=== PATIENT | male | born 1950 | race Caucasian/White ===

== ENCOUNTER 2017-10-13 09:45 | Day surgery (SDC) | payer MEDICARE, OTHER | END 2017-10-13 09:46 | disposition home or self-care (01) | LOC: D.OPS 09:45 | DX: R97.20 Elevated prostate specific antigen [PSA] (principal); R36.1 Hematospermia; R31.21 Asymptomatic microscopic hematuria; I10 Essential (primary) hypertension; E11.9 Type 2 diabetes mellitus without complications; G47.30 Sleep apnea, unspecified; Z01.812 Encounter for preprocedural laboratory examination ==

== ENCOUNTER → 2017-10-28 09:40 | Outpatient (CLI) | payer MEDICARE, OTHER ==
[2017-10-13 06:47] VITALS: BMI 32.1
[~2017-10-28 09:40] MED LIST: ASPIRIN81 MG PO; COLACE100 MG PO; COZAAR50 MG PO; FLOMAX0.4 MG PO; HCTZ25 MG PO; HUMALOG 30100 UNITS/ SC; LANTUS INSULIN10 ML SC; METFORMIN HCL500 M1 PO; MYSOLINE 50 MG50 MG PO; NORCO 7.5/325 T1 TA1 PO; TRICOR145 MG PO; ZESTRIL40 MG PO; ZOCOR20 MG PO; ZOFRAN4 MG PO
== END | disposition home or self-care (01) ==
LOC: D.NM 09:40
DX: C61 Malignant neoplasm of prostate (principal)

== ENCOUNTER 2018-01-05 05:50 | Inpatient (IN) | payer MEDICARE, OTHER ==
[2018-01-04 10:45] LABS: BASOPHILS 0.1 % (0-2); EOSINOPHILS 1.6 % (0-7); HEMATOCRIT 41.6 % (42.0-54.0); HEMOGLOBIN 14.6 g/dL (13.5-17.5); IMMATURE GRANULOCYTES 0.1 % (0-5); LYMPHOCYTES 36.1 % (15-50); MCH 30.6 pg (26.0-34.0); MCHC 35.1 g/dL (31.0-37.0); MCV 87.2 fL (80.0-100.0); MEAN PLATELET VOLUME 9.9 fL (7.4-10.4); MONOCYTES 8.9 % (2-11); NEUTROPHILS 53.2 % (40-80); PLATELET COUNT 170 10x3/uL (130-400); RBC 4.77 10x6/uL (4.20-6.10); WBC 6.8 10x3/uL (4.8-10.8)
[2018-01-04 10:57] LABS: INR 1.02 (0.85-1.17)
[2018-01-04 10:58] LABS: APTT 30.8 SECONDS (22.8-39.4)
[2018-01-04 11:05] LABS: ANION GAP 10.3 mmol/L (8-16); CALCIUM 9.4 mg/dL (8.5-10.1); CARBON DIOXIDE 31.5 mmol/L (21.0-32.0); CREATININE - SERUM 1.1 mg/dL (0.6-1.3); POTASSIUM - SERUM 3.8 mmol/L (3.5-5.1)
[~2018-01-05] VITALS: Ht 180.3 cm; Wt 104.3 kg
[2018-01-05] VITALS (13 sets, daily range): BP systolic 92–147; BP diastolic 48–87; BMI 32.1
--- NOTE | ~2018-01-05 | OP ---
PATIENT NAME: PHILLY BERGER MEDICAL RECORD: [id number] :48 LOCATION:D.MS [id number] ADMISSION DATE:01/05/18 SURGEON: DANY BENSON MD DATE OF OPERATION: 01/05/2018 This is a cosurgeon note. This is for the prostatectomy with lymph node biopsies/sampling. Due to complexity of the procedure, it was necessary to have 2 attending surgeons perform the procedure. This is a cosurgeon case. Dr. Vasquez and myself performed this procedure. I was present during the initial opening of the incision as well as dissection down through the subcutaneous adipose tissue and Kayleigh's fascia. I incised the anterior fascia. Dr. Vasquez worked on the right side, I worked on the left side to create an extraperitoneal plane. Once we had done this, Dr. Vasquez worked on the right side harvesting lymph nodes. I worked on the left side, dissected down to the obturator nerve, which was identified and retracted for protection. It was undamaged during the procedure. A wilber packet was retrieved and lymphatics to the wilber packet were clipped with metallic clips. The specimen was sent to pathology. The vas deferens on the left was ligated and divided doubly and a portion was excised and sent to pathology. This was performed on the right side as well. There were dense adhesions from the patient's prior urologic operation. Dr. Vasquez had performed a cystoscopy prior to the open procedure and I was not a cosurgeon on that cystoscopy; however, I was present to witness it. We dissected down to the left side to the endopelvic fascia, which was incised and I dissected bluntly down the left side of the prostate to the urethra. Dr. Vasquez did the same procedure on the right. We then released some adhesions from the prostate gland to the overlying pubic symphysis. Some suture ligatures were placed. We dissected down to the junction of the urethra in the prostate gland which Dr. Vasquez incised. We then transected the urethra. I assisted with placement of a Esparza catheter through the prostate gland and then ablation for retraction. I dissected some posteriorly on the prostate gland and Dr. Vasquez did as well. Between clips on the left side of the prostate gland, ligamentous tissue was incised. The prostate gland was delivered. Dr. Vasquez divided the bladder neck anteriorly while I retracted the prostate gland. I continued this division of the prostate gland. We then everted the mucosa of the prostate gland with small chromics. I did one side and Dr. Vasquez did the other. We then decreased the bladder opening with a running suture. We then advanced a urinary catheter up through the urethra and into the bladder and then inflated it. We released the retractor on the bladder. Dr. Vasquez then used the Capio device to place several sutures through the urethra and did this as well. These were placed at roughly 12 o'clock, 2 o'clock, 10 o'clock, 5 o'clock, and 7 o'clock. We then placed sutures from inside the bladder to outside the bladder corresponding to these same numbers on the face of a clock. We then pushed the bladder down to the urethra and tied the sutures. A hemostatic agent was placed on either side of the bladder neck. The drain was placed. Dr. Vasquez and I then performed the fascial closure. Some subcutaneous 3-0 Vicryls were placed and the adipose tissue and then metallic clips. The drain was sutured to skin with a 2-0 nylon. TRANSINT:[id number] Voice Confirmation ID: [id number] DOCUMENT ID: [id number] OPERATIVE REPORT [id number] PHILLY BERGER, DANY BATES at 1157 CC: [id number] DICTATION DATE: 01/07/18 1159 MEDIA SALES EXECUTIVE: 01/07/18 1642 DIS IN 01/07/18 [facility] [address] [id number]
--- NOTE | ~2018-01-05 | OP ---
PATIENT NAME: PHILLY BERGER MEDICAL RECORD: [id number] :48 LOCATION:D.MS [facility] ADMISSION DATE:01/05/18 SURGEON: DANY BARNEY MD DATE OF OPERATION: 01/05/2018 CO-SURGEON: Dany Barney M.D.; and Dany Watkins MD ANESTHESIA: General anesthesia plus TAP, Luke Sewell MD DIAGNOSIS: Prostate cancer on the right lobe, [place] 3+3 equals 6. PSA 3.8. Stage T2b, N0, M0. PROCEDURES: Cystoscopy and radical retropubic prostatectomy with pelvic lymph node biopsy. FINDINGS: On cystoscopy, obstructive prostate. He had the left ureter reimplanted and it enters into the left lateral wall of the bladder. The right ureteral orifice could not be found. No bladder tumors were found. On lymph node frozen sections, no cancer found. SPECIMENS: 1. Left vas. 2. Right vas. 3. Right pelvic lymph nodes. 4. Left pelvic lymph nodes. 5. Prostate with attached seminal vesicles. ESTIMATED BLOOD LOSS: 1500 mL. No blood transfused intraoperatively. COMPLICATIONS: None. CLINICAL HISTORY: This is a 67-year-old male who had obstructive voiding symptoms from BPH. He was found to have an elevated PSA of 3.8. He has a positive family history of prostate cancer with one uncle dying of prostate cancer. A brother had prostate cancer and this was treated with radical prostatectomy. Because his PSA was quite borderline and given his positive family history, he had a prostate biopsy performed. Prostate size was estimated at 63 grams and the cores on the right side of the prostate were all positive for cancer, [place] 3+3 equals 6. He then had a metastatic workup including a chest x-ray, which was normal. Whole body bone scan was normal. CT scan of the abdomen and pelvis showed an enlarged prostate with a 1.4-cm sacral bone island and there was no hydronephrosis. There was bilateral renal atrophy on the CT. He had bilateral ureteral reimplantation when he was age 23 as he had kept getting recurrent urinary tract infections from reflux. The treatment options were given to him. Given his family history of prostate cancer with one , he was not amenable to watchful waiting. He did not want to have radiation. Therefore, his choice was for radical prostatectomy. He had the option to go to [place] to have a robotic prostatectomy performed, but he did not wish to do this. He wished to stay here in [place] and have an open retropubic prostatectomy performed. He did have an enema the evening before in order to clear the rectum. We crossmatched him for 2 units of packed red blood cells. He was given ampicillin and sulbactam IV cast iron drain pipe layer to the OR, 3 grams. HE IS ALLERGIC TO NEOSPORIN. OPERATIVE REPORT [id number] PHILLY BERGER PROCEDURE: The patient was given induction of general anesthetic while in supine position on the stretcher. I wish to perform a flexible cystoscopy initially to determine where the ureteral orifices are in his bladder, since they have been reimplanted. We put his legs into frog-leg position and then he was prepped and draped. Flexible cystoscope was introduced. Penile urethra showed no strictures. Prostatic urethra showed trilobar hyperplasia with obstruction. Going into the bladder, I could not see his [place] ureteral orifices. No bladder tumors were seen. With great difficulty, I could find the left ureteral orifice in the mid lateral wall of the left side of the bladder. Looking on the corresponding location on the right side, it was very difficult to find the orifice, but I am going to presume that it is in the comparable location on the right side on the lateral wall. The orifices are located at quite a distance away from the bladder neck and therefore we are relatively safe in performing our prostatectomy surgery. The patient was then transferred to the operating table. He was placed in the supine position. We placed his iliac crest at the level of the kidney rest, which was brought up a little bit. The table was also bent so that his spine was in extension. This opened up the abdomen as much as possible. He has a vertical midline incision on his abdomen from his previous ureteral reimplantation surgery. We reentered this from just inferior to the umbilicus to the level of the symphysis pubis. Since there was some irregular scarring along this incision, we excised the previous scar. We went down with the Bovie down through the rectus fascia. Here, we encountered quite a lot of adhesions of the transversalis fascia to the undersurface of the rectus fascia. With sharp and blunt dissection, we managed to finally enter the space of Retzius. We stayed out of the peritoneal cavity. As we dissected laterally, we encountered the vas deferens on each side. The vas deferens was then tied proximally and distally with about a 2 cm interval in between. The intervening segment was excised and sent to pathology for identification. We were then able to put our Bookwalter retractor in. Moistened lap sponges were used to pad the retractor blades. We also used a bladder retraction blade to pull the bladder up. We had inserted a 16-Bhutanese Esparza catheter with 20 cc of water in the balloon. This was used to go into the notch of the bladder retraction blade and hold the bladder cranially. Our first order of business was to check for the pelvic lymph nodes. The landmark for the lymph node package is bordered anteriorly by the external iliac vein. Distally, it is the branch of the circumflex iliac vein coming off the external iliac vein. Posteriorly, it is the obturator nerve. Cranially, it is the branching of the common iliac vein into the external iliac and internal iliac veins. Within this area, we used the Yankauer suction as well as clips to remove the wilber package. The obturator nerve was identified clearly on both sides and left intact on both sides. We sent the lymph node packages to pathology for frozen section. Dr. Saeed reported that both lymph node packages were negative for prostate cancer. We then made incisions in the endopelvic fascia using the Bovie. This was on either side of the lateral wall of the prostate. We were then able to bluntly dissect the levator muscles away from the lateral surface of the prostate and therefore palpate the apex of the prostate and the urethra contained there. This was done on either side. A backbleeding suture of 2-0 chromic catgut was placed in a [id number]-gkzqt fashion along the dorsal surface of the prostate to prevent bleeding from the bladder neck region. We then placed a [place] clamp into the plane between the anterior surface of the urethra and just posterior to the dorsal venous complex. Here, we placed three sets of #0 silk ties to ligate the dorsal venous complex. OPERATIVE REPORT [id number] PHILLY BERGER We did not take the puboprostatic ligaments down, but they were left intact. Once the dorsal veins had been ligated in triplicate, we then used the #15 blade to incise the dorsal venous complex. We had some bleeding from the dorsal vein and we placed a horizontal mattress suture using #0 silk in order to control this. We now dissected the plane between the posterior surface of the urethra and the anterior surface of the rectum using the [place] clamp. This was done at the level of the apex of the prostate. We were then able to pass the [place] clamp through underneath the urethra to the other side. Here, we took a Romelia drain and pulled it through. Using hemostats on either side of the [place] drain to suspend the urethra anteriorly, a #15 blade was used to circumscribe the urethra at the level of the apex of the prostate. We were then able to transect the Esparza catheter. We placed another Esparza catheter through the prostate apex, into the bladder, and used this for traction of the apex of the prostate. The rectourethralis muscle was sharply divided using Metzenbaum scissors. We were then able to bluntly dissect the anterior surface of the rectum away from the posterior surface of the prostate. The lateral pedicles at the endopelvic fascia on each side and incised using a #15 blade. This was to try to spare his nerves. The patient does have erectile dysfunction already, but we are still going to try to perform a cavernosal nerve sparing procedure. The lateral prostatic pedicles were taken down using a right-angle clamp for dissection and using clips. We would clip on the patient's side of the pedicle and just divide above it with Metzenbaum scissors on the prostatic side. In this way, we got to the level of the bladder neck on either side of the prostate. We had to free up the seminal vehicles and vas deferens. The Denonvilliers fascia was incised transversely. The fascia was then dissected away from the vas deferens and the seminal vesicles. We dissected the seminal vesicles down to the apex. Here, a clip was placed on the pedicle right at the apex of the seminal vesicle on each side and the seminal vesicle was then divided using Metzenbaum scissors. We dissected around the vas deferens and a clip was placed and the Metzenbaum scissors was used to divide the vas deferens on the prostatic side of the clip. Finally, the only thing holding the prostate was the bladder neck. We used initially the Bovie to start incision of the bladder neck. Finally, we used the Metzenbaum scissors to completely go around the bladder neck and free the prostate from the bladder. The prostate was then entirely free and it was sent to pathology in formalin. On examining the bladder, we still had good urine output coming out of the bladder. Therefore, the ureters were not affected at all. In fact, on examining the exterior surface of the bladder, we could see on the left lateral side the ureter as it entered into the bladder. We then everted the mucosa of the bladder. The 4-0 simple interrupted chromic catgut sutures were used to tack the bladder mucosa to over the cut edge of the bladder wall. This, we did all the way around. We then made a tennis racquet narrowing of the bladder neck. A running 2-0 Vicryl suture was used to narrow the open bladder neck from posteriorly towards the anterior surface. We left a 1 cm diameter opening of the bladder neck. At this point, we are now going to place our anastomotic sutures. Five anastomotic sutures were placed using the Slip Stoppers suture backhaul driver. These were of 2-0 polyglytone sutures. These were placed from outside in into the urethra. Once all 5 anastomotic sutures were placed using a sound to prevent injury to the opposite side of the urethra, then we removed the sound and placed in our 22-Bhutanese silicone Esparza catheter. This was placed through the urethra and then into the bladder. We kept the balloon deflated initially. The 5 anastomotic sutures were placed from inside out in their respective positions on the bladder neck. Once all 5 anastomotic sutures had been placed OPERATIVE REPORT [id number] PHILLY BERGER through the urethra and the bladder, we then inflated the Esparza catheter balloon with 15 cc of sterile water. The kidney rest was then brought down and the bed was straightened out. The bladder was gently pushed down to the level of the urethra. All 5 anastomotic sutures were then tied down starting from the anterior suture and working posteriorly. Once the anastomosis was complete, we irrigated out the Esparza catheter. We noticed no leakage at all from our anastomosis. The catheter irrigated without any obstruction. A #10 flat Milo-Gonzales drain was placed out through the right lower quadrant of the abdomen and sutured down with a 2-0 nylon. This was put to bulb suction drainage. We placed Surgicel on either side of the bladder neck for hemostasis. The wound was irrigated out. The fascia was reapproximated using running looped #0 PDS. Vicryl 4-0 was used to reapproximate the subcutaneous fat. The skin was then closed with radha. A dressing was applied to the incision. The patient was awakened and brought back to the recovery room. We obtained intraoperative hemoglobin reading and it was 11.3. After the hemoglobin reading was obtained, we had minimal blood loss. Therefore, the patient did not have any blood transfusion. The patient does have a central line in and so he will be monitored in the intensive care unit overnight. TRANSINT:[id number] Voice Confirmation ID: [id number] DOCUMENT ID: [id number] DANY BARNEY MD at 0757 CC: [id number] DICTATION DATE: 01/05/18 1402 PATTERNMAKER METAL BENCH: 01/05/18 1613 ADM IN [place] [id number] [place] [place] [id number]
[~2018-01-05 05:50] MED LIST changes: -NORCO 7.5/325 T1 TA1 PO; -ZOFRAN4 MG PO
[2018-01-05 11:15] LABS: BASOPHILS 0.1 % (0-2); EOSINOPHILS 0.6 % (0-7); HEMATOCRIT 35.4 % (42.0-54.0); HEMOGLOBIN 11.9 g/dL (13.5-17.5); IMMATURE GRANULOCYTES 0.1 % (0-5); LYMPHOCYTES 26.5 % (15-50); MCH 30.1 pg (26.0-34.0); MCHC 33.6 g/dL (31.0-37.0); MEAN PLATELET VOLUME 10.1 fL (7.4-10.4); MONOCYTES 7.6 % (2-11); NEUTROPHILS 65.1 % (40-80); PLATELET COUNT 175 10x3/uL (130-400); RBC 3.96 10x6/uL (4.20-6.10); RDW 14.1 % (11.5-14.5); WBC 7.9 10x3/uL (4.8-10.8)
[2018-01-05 11:19] LABS: MCV 89.4 fL (80.0-100.0)
[2018-01-05 11:31] LABS: ANION GAP 11.6 mmol/L (8-16); CALCIUM 8.3 mg/dL (8.5-10.1); CARBON DIOXIDE 24.9 mmol/L (21.0-32.0); CREATININE - SERUM 1.2 mg/dL (0.6-1.3); POTASSIUM - SERUM 3.5 mmol/L (3.5-5.1)
[2018-01-05 12:37] LABS: HEMATOCRIT 33.9 % (42.0-54.0); HEMOGLOBIN 11.3 g/dL (13.5-17.5)
[2018-01-05 14:43] LABS: HEMATOCRIT 34.5 % (42.0-54.0); HEMOGLOBIN 11.7 g/dL (13.5-17.5)
[2018-01-06 02:35] VITALS: BP 90/48
[2018-01-06 05:29] LABS: BASOPHILS 0.2 % (0-2); EOSINOPHILS 0.1 % (0-7); HEMOGLOBIN 9.4 g/dL (13.5-17.5); IMMATURE GRANULOCYTES 0.2 % (0-5); LYMPHOCYTES 15.4 % (15-50); MCH 29.6 pg (26.0-34.0); MCHC 33.6 g/dL (31.0-37.0); MCV 88.1 fL (80.0-100.0); MEAN PLATELET VOLUME 9.8 fL (7.4-10.4); MONOCYTES 13.3 % (2-11); NEUTROPHILS 70.8 % (40-80); PLATELET COUNT 140 10x3/uL (130-400); RBC 3.18 10x6/uL (4.20-6.10); RDW 15.8 % (11.5-14.5); WBC 9.5 10x3/uL (4.8-10.8)
[2018-01-06 05:58] LABS: CALCIUM 7.4 mg/dL (8.5-10.1); CARBON DIOXIDE 28.5 mmol/L (21.0-32.0); CREATININE - SERUM 1.3 mg/dL (0.6-1.3); POTASSIUM - SERUM 3.5 mmol/L (3.5-5.1)
[2018-01-06 06:20] VITALS: BP 110/55
[2018-01-06 09:07] VITALS: BP 118/61
[2018-01-06 12:44] VITALS: BMI 32.0
[2018-01-06 12:45] VITALS: Ht 180.3 cm; Wt 104.3 kg
[2018-01-06 13:13] VITALS: BP 107/55
[2018-01-06 16:23] VITALS: BP 104/57
[2018-01-06 22:16] VITALS: BP 125/61
[2018-01-07 05:26] VITALS: BP 131/72
[2018-01-07 08:03] VITALS: BP 149/69
[2018-01-07 11:08] LABS: BASOPHILS 0.1 % (0-2); EOSINOPHILS 0.2 % (0-7); HEMOGLOBIN 9.2 g/dL (13.5-17.5); IMMATURE GRANULOCYTES 0.3 % (0-5); LYMPHOCYTES 10.4 % (15-50); MCH 29.6 pg (26.0-34.0); MCHC 32.9 g/dL (31.0-37.0); MEAN PLATELET VOLUME 10.4 fL (7.4-10.4); PLATELET COUNT 143 10x3/uL (130-400); RBC 3.11 10x6/uL (4.20-6.10); RDW 15.8 % (11.5-14.5); WBC 11.7 10x3/uL (4.8-10.8)
[2018-01-07 12:58] VITALS: BP 139/71
[2018-01-07] MEDS ORDERED: NORCO 7.5/325 T1 TA1 PO (16:38)
[2018-01-07] MEDS ORDERED: ZOFRAN4 MG PO (16:39)
[2018-01-07 16:52] VITALS: BP 134/73
== END 2018-01-07 17:54 | disposition home or self-care (01) | DRG 707 ==
LOC: D.SDCHOLD 05:50 → D.ICU 05:50 → D.MS 05:50 → D.SDCHOLD 08:00 → D.ICU 14:38 → D.MS 01-06 01:05
PROVIDERS: Anesthesiology; Internal Medicine Nephrology; Urology
PROC: 0VT00ZZ Resection of Prostate, Open Approach (ICD-10-PCS; principal; 2018-01-05 08:00)
PROC: 07TC0ZZ Resection of Pelvis Lymphatic, Open Approach (ICD-10-PCS; 2018-01-05 08:00)
DX: C61 Malignant neoplasm of prostate (principal); K56.7 Ileus, unspecified; E11.9 Type 2 diabetes mellitus without complications; I10 Essential (primary) hypertension; E78.5 Hyperlipidemia, unspecified; I95.81 Postprocedural hypotension; Z87.891 Personal history of nicotine dependence

== ENCOUNTER → 2018-01-17 17:37 | Outpatient (CLI) | payer MEDICARE, OTHER ==
[2018-01-10 14:02] VITALS: BMI 32.0
[~2018-01-17 17:37] MED LIST changes: +NORCO 7.5/325 T1 TA1 PO; +ZOFRAN4 MG PO
[2018-01-28 17:13] LABS: AEROBE ID Final report (())
== END | disposition home or self-care (01) ==
LOC: D.LABREF 17:37
PROVIDERS: Urology
DX: L03.90 Cellulitis, unspecified (principal)

== ENCOUNTER → 2018-02-04 16:34 | Outpatient (CLI) | payer MEDICARE, OTHER ==
[2018-01-10 14:02] VITALS: BMI 32.0
[~2018-02-04 16:34] MED LIST changes: +CIPRO500 MG PO
== END | disposition home or self-care (01) ==
LOC: D.LABREF 16:34
DX: C61 Malignant neoplasm of prostate (principal); Z12.5 Encounter for screening for malignant neoplasm of prostate

== ENCOUNTER 2018-02-05 17:25 | Emergency (ER) | payer MEDICARE, OTHER ==
[~2018-02-05] VITALS: Ht 180.3 cm; Wt 98.9 kg
[~2018-02-05 17:25] MED LIST changes: -CIPRO500 MG PO
[2018-02-05 17:49] VITALS: Ht 180.3 cm; Wt 98.9 kg
[2018-02-05 18:32] LABS: APPEARANCE TURBID (CLEAR); BILIRUBIN NEGATIVE (NEGATIVE); COLOR YELLOW (YELLOW); GLUCOSE 100 mg/dL (NEGATIVE); KETONE NEGATIVE (NEGATIVE); NITRITE NEGATIVE (NEGATIVE); PROTEIN NEGATIVE (NEGATIVE); SPECIFIC GRAVITY 1.015 (1.005-1.020); UROBILINOGEN NORMAL (NORMAL)
[2018-02-05 18:33] LABS: RED CELLS - URINE 0-5 /hpf (0-5); WHITE CELLS - URINE >50 /hpf (0-5)
[2018-02-05 18:34] LABS: BACTERIA MANY /hpf (NONE SEEN)
[2018-02-05] MEDS ORDERED: CIPRO500 MG PO (19:44)
[2018-02-05 20:01] VITALS: BP 132/78
== END 2018-02-05 20:11 | disposition home or self-care (01) ==
LOC: D.ER 17:25
PROVIDERS: Family Medicine
DX: N39.0 Urinary tract infection, site not specified (principal); R33.9 Retention of urine, unspecified; E11.9 Type 2 diabetes mellitus without complications; I10 Essential (primary) hypertension

== ENCOUNTER → 2018-02-22 19:09 | Outpatient (CLI) | payer MEDICARE, OTHER ==
[2018-02-05 17:49] VITALS: BMI 32.0
[~2018-02-22 19:09] MED LIST changes: +CIPRO500 MG PO
== END | disposition home or self-care (01) ==
LOC: D.LABREF 19:09
DX: S31.109A Unspecified open wound of abdominal wall, unspecified quadrant without penetration into peritoneal cavity, initial encounter (principal); X58.XXXA Exposure to other specified factors, initial encounter; Z90.79 Acquired absence of other genital organ(s)

== ENCOUNTER → 2018-03-18 10:31 | Outpatient (CLI) | payer MEDICARE, OTHER ==
[2018-02-05 17:49] VITALS: BMI 32.0
[~2018-03-18 10:31] MED LIST changes: +APIDRA SOL100 UNIT/1 SQ; +FLINTSTONE1 TAB.CHEW PO
== END | disposition home or self-care (01) ==
LOC: D.RT 10:31
DX: R94.31 Abnormal electrocardiogram [ECG] [EKG] (principal); R06.09 Other forms of dyspnea; R07.9 Chest pain, unspecified

== ENCOUNTER → 2018-03-21 16:44 | Outpatient (CLI) | payer MEDICARE, OTHER ==
[2018-02-05 17:49] VITALS: BMI 32.0
== END | disposition home or self-care (01) ==
LOC: D.LABREF 16:44
DX: N39.0 Urinary tract infection, site not specified (principal)

== ENCOUNTER → 2018-04-21 06:57 | Outpatient (CLI) | payer MEDICARE, OTHER ==
[~2018-04-21] VITALS: Ht 180.3 cm; Wt 103.2 kg
--- NOTE | ~2018-04-21 | OP ---
PATIENT NAME: PHILLY BERGER MEDICAL RECORD: [id number] :48 LOCATION:D.CAT ADMISSION DATE: SURGEON: KENDRICK ROGERS MD DATE OF OPERATION: 04/21/2018 PROCEDURE: Left heart cath, LV gram, coronary angiogram. CLERICAL ASSOCIATE: Kendrick Rogers MD PROCEDURE IN DETAIL: The patient was brought to the cardiac catheterization lab in stable condition. Both groins and right wrist were sterilely prepped and draped. The patient had a 6-Czech sheath placed in the right radial artery using modified Seldinger technique. The patient then had the left ventricular cavity intubated. The left coronary artery and the right coronary artery were intubated respectively for complete left heart catheterization in selective positions. FINDINGS: 1. The left main has mild plaquing. 2. The LAD has a mid 90% stenosis. There is collateralization from the LAD into the distal PDA. 3. The circumflex is a nondominant vessel by distribution and has 100% occlusion of an OM proximally and then the terminal obtuse marginal branch has a proximal 90% to 95% stenosis. 4. The RCA is shown to have a proximal 90% stenosis. PDA is not seen on the right side, indicating possible occlusion of the PDA. HEMODYNAMICS: Left ventricular ejection fraction is 55%. End-diastolic pressure is normal. IMPRESSION: Multivessel coronary artery disease in a patient with diabetes mellitus and preserved LV systolic function. RECOMMENDATIONS: Coronary artery bypass grafting. TRANSINT:[id number] Voice Confirmation ID: [id number] DOCUMENT ID: [id number] KENDRICK ROGERS MD at 1458 CC: [id number] DICTATION DATE: 04/21/18 1029 ADDRESS CHANGE CLERK: 04/21/18 1307 DEP CLI 04/21/18 [place] [address]
--- NOTE | ~2018-04-21 | HEMODYNAMI ---
PATIENT:PHILLY BERGER MEDICAL RECORD: [id number] : 46 LOCATION:[facility] ADMISSION DATE: 04/21/18 Generatedon:04/21/201810:33 Patient name: PHILLY BERGER Patient #: [id number] SSN: : 1950 Date of study: 04/21/2018 Page: Of Hemodynamic Procedure Report Patient Data Patient Demographics Procedure consent was obtained First Name: PHILLY Gender: Male Last Name: AB : 1950 [facility] Initial: ARON Age: 67 year(s) Patient #: [id number] Race: Unknown Additional ID: [id number] Contact details [address]: [address] [place] [address] State: [place] City: [place] Zip code: [address] Past Medical History Allergies Allergen Reaction Date Comments Reported Other allergy 04/21/2018 neosporin Admission Admission Data Admission Date: 04/21/2018 Admission Time: 6:57 Height (in.): 62 BSA: 2.05 (m2) Height (cm.): 157.48 BMI: 43.16 (kg/m2) Weight (lbs.): 236 Weight (kg.): 107.05 Procedure Procedure Types Cath Procedure Diagnostic Procedure [facility] w/Coronaries Sedation Charges Moderate Sedation up to 15 minutes Moderate Sedation up to 30 minutes Moderate Sedation up to 45 minutes Procedure Description Procedure Date Procedure Date: 04/21/2018 Procedure Start Time: 9:40 Procedure End Time: 10:28 Procedure Staff Name Function Yo Bunn RN Nurse Vini Maza RT Scrub Anabelle Mora RT Monitor Kendrick Napoles MD Performing Physician Procedure Data Cath Procedure Fluoroscopy Diagnostic fluoroscopy Total fluoroscopy Time: time: 25.3 min 25.3 min Diagnostic fluoroscopy Total fluoroscopy dose: dose: 2894 mGy 2894 mGy Contrast Material Contrast Material Type Amount (ml) Isovue 300 155 Entry Location Entry Primary Successful Side Size Upsize Upsize Entry Closure Lopez ccessful Closure Location (Fr) 1 (Fr) 2 (Fr) Remarks Device Remarks Radial Right 6 Fr Mechanical TR artery Short Compression Estimated blood loss: 10 ml Diagnostic catheters Device Type Used For End Catheter Placement DIAGNOSTIC Bunn 110cm 5 Procedure Fr catheter ([id number]) DIAGNOSTIC Aidan 110cm Procedure 5Fr catheter (315258) Procedure Complications No complications Procedure Medications Medication Administration Route Dosage Oxygen etCO2 Nasal cannula 2 l/min Heparin Flush Bag added to field 2 bags (1000units/500ml NS) 0.9% NaCl I.V. 100 ml/hr Lidocaine 2% added to field 20 Versed I.V. 2 mg Fentanyl I.V. 50 mcg Radial Cocktail I.A. 1 syringe (Verapomil 2mg/Nitro 400mcg/Heparin 1500units) Versed I.V. 1 mg Fentanyl I.V. 25 mcg Hemodynamics Rest BSA: 2.05 (m2) O2 Consumption: Estimated: 244.65 (ml/min) O2 Consumption indexed : Estimated:119.34 (ml/min/m) Heart Rate: 80 (bpm) Pressure Samples Time Site Value (mmHg) Purpose Heart Use Rate(bpm) 9:44 LV 110/8,8 Snapshot 85 Gradients Valve Time Site Site Mean SEP/DFP Peak To Heart Use 1 2 (mmHg) (sec/min) Peak Rate (mmHg) (bpm) Aortic 9:44 LV AO 82 Snapshots Pre Cath Intra NCS Post Cath Vital Signs Time Heart Resp SPO2 etCO2 NIBP (mmHg) Rhythm Pain Sedation Rate (ipm) (%) (mmHg) Status Level (bpm) 9:23:29 80 16 94 0 159/90(139) NSR 0 (11) 10(A) , No pain 9:27:45 77 23 94 0 156/86(116) NSR 0 (11) 10(A) , No pain 9:32:01 79 20 94 0 158/89(125) NSR 0 (11) 10(A) , No pain 9:36:24 78 16 94 1.5 136/79(116) NSR 0 (11) 10(A) , No pain 9:40:36 79 15 96 33.9 145/80(114) NSR 0 (11) 10(A) , No pain 9:44:50 85 30 93 29.3 120/69(86) NSR 0 (11) 10(A) , No pain 9:48:59 79 21 94 21.8 114/68(90) NSR 0 (11) 10(A) , No pain 9:53:09 75 38 93 12 116/68(95) NSR 0 (11) 10(A) , No pain 9:57:19 73 16 92 31.6 136/69(97) NSR 0 (11) 10(A) , No pain 10:01:33 76 13 93 13.5 115/67(88) NSR 0 (11) 10(A) , No pain 10:05:43 85 12 93 31.6 115/68(98) NSR 0 (11) 10(A) , No pain 10:09:55 75 19 92 24 129/65(84) NSR 0 (11) 10(A) , No pain 10:14:11 75 14 93 32.3 120/72(104) NSR 0 (11) 10(A) , No pain 10:18:19 72 17 93 32.3 136/77(106) NSR 0 (11) 10(A) , No pain 10:22:33 74 16 93 32.3 144/78(113) NSR 0 (11) 10(A) , No pain 10:26:51 72 23 94 33.8 140/78(116) NSR 0 (11) 10(A) , No pain Medications Time Medication Route Dose Verified Delivered Reason Notes Effectiveness by by 9:25:20 Oxygen etCO2 2 l/min Kendrick Buffie Per Nasal Dony campbell MD 9:25:55 Heparin Flush added 2 bags Kendrick Buffie used for Bag to Dony Bunn RN procedure (1000units/500ml field BATES NS) 9:26:08 0.9% NaCl I.V. 100 Kendrick Buffie Per ml/hr Dony Bunn RN physician 9:33:36 Lidocaine 2% added 20ml Kendrick Kendrick for local to vial Dony Napoles MD anesthetic field BATES 9:33:44 Versed I.V. 2 mg Kendrick Buffie for sedation Dony Bunn RN, MD 9:33:49 Fentanyl I.V. 50 mcg Kendrick Buffie for sedation Dony Bunn RN, MD 9:42:55 Radial Cocktail I.A. 1 Kendrick Kendrick for (Verapomil syringe Dony Napoles MD vasodilation 2mg/Nitro 400mcg/Hepari 9:57:05 Versed I.V. 1 mg Kendrick Ram for sedation Dony Bunn RN, MD 9:57:10 Fentanyl I.V. 25 mcg Kendrick Ram for sedation Dony Bunn RN, MD Procedure Log Time Note 8:33:25 Patient Height : 62 inches 8:33:31 Patient Weight : 236 lbs 8:34:24 Diagnostic Cath status Elective 8:34:40 Time tracking: Regular hours (M-F 7:00 - 5:00) 8:34:45 Plan of Care:Hemodynamics will remain stable., Cardiac rhythm will remain stable., Comfort level will be maintained., Respiratory function will remain adequate., Patient/ family verbilizes understanding of procedure., Procedure tolerated without complication., Recovers from procedure without complications.. 8:35:50 H&P Date Dictated: 04/18/2018 Within 30 days and on chart., H&P Addendum completed by physician on day of procedure. (MUST COMPLETE FOR ALL OUTPATIENTS). 8:35:52 Pre-procedure instructions explained to patient. 8:35:57 Family in waiting room. 8:35:59 Patient NPO since Midnight. 8:36:25 Patient allergic to Other allergyneosporin 8:36:36 Is the patient allergic to Iodine/contrast media? No. 8:36:45 Was the patient premedicated? Yes 9:10:03 Anabelle MARCIAL(R) sent for patient. Start room use. 9:15:53 Patient received from Pre/Post Procedure Room to [facility] 2 Alert and oriented. Tansferred to table in Supine position. 9:15:54 Warm blankets applied, and aviva hugger turned on for patient comfort. 9:15:55 Correct patient and procedure confirmed by team. 9:15:56 Signed procedure consent form obtained from patient. 9:15:57 ECG and BP/O2 sat monitors applied to patient. 9:15:59 Pre-op teaching completed and patient verbalized understanding. 9:22:17 Vital chart was started 9:25:20 Oxygen 2 l/min etCO2 Nasal cannula was administered by Yo Bunn RN; Per physician; 9:25:55 Heparin Flush Bag (1000units/500ml NS) 2 bags added to field was administered by Yo Bunn RN; used for procedure; 9:26:08 0.9% NaCl 100 ml/hr I.V. was administered by Yo Bunn RN; Per physician; 9:28:51 Baseline sample Acquired. 9::56 Rhythm: sinus rhythm 9::58 Full Disclosure recording started 9:29:09 Patient diabetic? Yes. 9:29:11 If diabetic: On Metformin? Yes 9:29:21 If on Metformin: Last Dose? 04/19/2018 9:31:28 Is patient on blood thinner?Yes 9:31:32 ACC The patient was administered the following blood thiners within the last 24 hours: ACCPlavix 9:32:05 Snore? Yes 9:32:08 Sleep apnea? Yes 9:32:10 Deviated septum? No 9:32:16 Patient pain scale 0/10 ?. 9:32:29 IV patent on arrival in left forearm with 0.9% NaCl at [facility]. 9:32:36 Lab results completed and on chart. 9:32:40 Right Radial & Right Groin area was prepped with chlora-prep and draped in sterile fashion 9:32:42 Sharps counted by scrub and verified by R.N. 9:32:42 Alarms reviewed by R. N. 9:32:47 Physician paged 9:32:55 Physician arrived 9:32:56 --------ALL STOP TIME OUT------ 9:32:57 Final Timeout: patient, procedure, and site verified with staff and physician. All members of the team are in agreement. 9:33:03 Right Radial & Right Groin site verified by team. 9:33:07 Physical assessment completed. ASA score P 2 - A patient with mild systemic disease as per Kendrick Napoles MD. 9:33:12 Sedation plan: IV Moderate Sedation Medication:Versed, Fentanyl 9:33:36 Lidocaine 2% 20ml vial added to field was administered by Kendrick Napoles MD; for local anesthetic; 9:33:44 Versed 2 mg I.V. was administered by Yo Bunn RN; for sedation; 9:33:49 Fentanyl 50 mcg I.V. was administered by Yo Bunn RN; for sedation; 9:39:39 Use device set Radial Dx or PCI 9:39:40 ACIST Syringe (15690) opened to sterile field. 9:39:41 Bag Decanter (2001S) opened to sterile field. 9:39:41 Medline Cath Pack ([id number]) opened to sterile field. 9:39:42 DIAGNOSTIC WIRE .035 260cm J wire (553874) opened to sterile field. 9:39:43 ACIST Hand Control (68844) opened to sterile field. 9:39:44 Tegaderm 4 x 4 (1626W) opened to sterile field. 9:39:44 ACIST Manifold (70919) opened to sterile field. 9:39:45 MBrace Wrist Support ([id number]) opened to sterile field. 9:39:48 NEEDLE Cook 21G 4cm Radial (M08965) opened to sterile field. 9:39:53 Procedure started. 9:40:11 SHEATH 6Fr Prelude Radial ([id number]) opened to sterile field. 9:40:20 Local anesthetic to right radial artery with Lidocaine 2% by Kendrick Napoles MD.INITIAL ACCESS ONLY 9:41:34 Zero performed for pressure channel P1 9:41:41 Zero performed for pressure channel P1 9:42:20 A 6 Fr Short sheath was inserted into the Right Radial artery 9:42:35 A DIAGNOSTIC Bunn 110cm 5 Fr catheter (365422) was advanced over the wire and used for Procedure. 9:42:55 Radial Cocktail (Verapomil 2mg/Nitro 400mcg/Heparin 1500units) 1 syringe I.A. was administered by Kendrick Napoles MD; for vasodilation; 9:43:57 LV gram done using JORGENSEN 9:45:01 EF : 55 % 9:54:01 GLIDE WIRE ANGLE 260cm (AA4485) opened to sterile field. 9:54:08 Catheter removed. 9:57:05 Versed 1 mg I.V. was administered by Yo Bunn RN; for sedation; 9:57:10 Fentanyl 25 mcg I.V. was administered by Yo Bunn RN; for sedation; 9:57:14 A DIAGNOSTIC Aidan 110cm 5Fr catheter (042447) was advanced over the wire and used for Procedure. 10:05:25 Catheter removed. 10:05:26 GUIDE 6FR AR 1.0 catheter (US4FW16) opened to sterile field. 10:06:08 RCA angiography performed. 10:06:56 Catheter removed. 10:08:52 GUIDE 6FR EBU 3.0 catheter ([id number]) opened to sterile field. 10:12:34 COPILOT Valve Control (8658167) opened to sterile field. 10:17:36 Catheter removed. 10:18:47 GUIDE 6FR XBLAD 3.5 catheter ([id number]) opened to sterile field. 10:20:46 LCA angiography performed. 10:22:12 Catheter removed. 10:24:44 TR BAND Standard ([id number]) opened to sterile field. 10:25:57 Sheath removed intact; hemostasis achieved with Mechanical Compression to the Right Radial artery. 10:25:59 Procedure ended.(Physican Out) 10:26:07 Fluoroscopy time 25.30 minutes. 10:26:20 Fluoroscopy dose: 2894 mGy 10:26:20 Flurop Dose total: 2894 10:26:31 Contrast amount:Isovue 300 155ml. 10:26:37 TR band inflated with 12cc of air. 10:26:38 Insertion/operative site no bleeding no hematoma. 10:26:45 Post right radial artery:stable 10:26:47 Post Procedure Pulses reassessed and unchanged 10:26:51 Post-procedure physical assessment completed. ASA score P 3 - A patient with severe systemic disease as per Kendrick Napoles MD. 10:26:54 Post procedure rhythm: unchanged. 10:26:57 Estimated blood loss: 10 ml 10:26:58 Post procedure instruction explained to patient.Patient verbalizes understanding. 10:27:18 Procedure type changed to Cath procedure, Diagnostic procedure, LHC, LHC w/Coronaries, Sedation Charges, Moderate Sedation up to 15 minutes, Moderate Sedation up to 30 minutes, Moderate Sedation up to 45 minutes 10:27:20 Procedure and supply charges have been captured, reviewed, submitted and are correct. 10:27:58 Procedure Complication : No complications 10:28:00 Vital chart was stopped 10:28:01 See physician's report for complete and final results. 10:28:03 Report given to Pre/Post Procedure Room. 10:28:06 Patient transfered to Pre/Post Procedure Room with Stretcher. 10:28:09 Full Disclosure recording stopped 10:28:09 Procedure ended. 10:28:15 End room use (Document Last) Device Usage Item Name Manufacture Quantity Catalog Number Hospital Part Current M inimal Lot# / Charge Number Stock Stock Serial# Code ACIST Syringe Acist 1 69296 634743 831661 939146 2 0 (79012) [employer] Medline Cath Cardinal 1 [id number] 705844 71047 859838 5 Pack Health ([id number]) Bag Decanter Microtek 1 2001S 528294 25920 453446 5 () Medical Inc. DIAGNOSTIC WIRE St Rufino 1 660711 977406 067245 984431 3 0 .035 260cm J wire (199679) ACIST Hand Acist 1 62857 344779 133801 126927 5 Control (67984) [employer] Inc ACIST Manifold Acist 1 99276 752985 568355 806513 5 (80937) [employer] Inc Tegaderm 4 x 4 3M 1 1626W 555088 999672 719632 5 (1626W) MBrace Wrist Advanced 1 140-0250-00 637840 55058 203825 5 Support Vascular ([id number]) Dynamics NEEDLE Cook 21G Cook Medical 1 K13275 667615 102701 569503 5 4cm Radial (W30462) SHEATH 6Fr Merit 1 [id number] 051938 756955 797950 5 Prelude Radial Medical ([id number]) DIAGNOSTIC Terumo 1 40-5013 954322 852752 476378 5 Bunn 110cm 5 Fr catheter (620597) GLIDE WIRE Terumo 1 XE6498 102416 471831 354841 5 ANGLE 260cm (YZ2583) DIAGNOSTIC Terumo 1 40-5023 458195 763621 124704 5 Aidan 110cm 5Fr catheter (107256) GUIDE 6FR AR Medtronic 1 [id number] 155337 71558 618832 1 1.0 catheter ([id number]) GUIDE 6FR EBU Medtronic 1 [id number] 330269 74210 464425 0 3.0 catheter ([id number]) COPILOT Valve Pierre 1 9959992 209398 044853 976682 5 Control Vascular (7952664) GUIDE 6FR XBLAD Cardinal 1 [id number] 403096 773297 267909 1 0 3.5 catheter Health (94026915) TR BAND Terumo 1 [id number] 489658 891089 312483 4 0 Standard ([id number]) Signature Audit [place] Stage Time Signature Unsigned Intra-Procedure 04/21/2018 Vini Maza 10:33:38 AM RT(R) Signatures Monitor : Anabelle Mora Signature : RT Date : Time : [address] [address]
[2018-04-21 08:32] VITALS: BP 158/77; Ht 180.3 cm; Wt 103.2 kg
[2018-04-21 08:47] LABS: BASOPHILS 0.3 % (0-2); EOSINOPHILS 1.7 % (0-7); HEMATOCRIT 39.3 % (42.0-54.0); HEMOGLOBIN 12.7 g/dL (13.5-17.5); IMMATURE GRANULOCYTES 0.3 % (0-5); LYMPHOCYTES 31.5 % (15-50); MCH 25.7 pg (26.0-34.0); MCHC 32.3 g/dL (31.0-37.0); MCV 79.6 fL (80.0-100.0); MEAN PLATELET VOLUME 9.9 fL (7.4-10.4); MONOCYTES 10.7 % (2-11); NEUTROPHILS 55.5 % (40-80); PLATELET COUNT 231 10x3/uL (130-400); RBC 4.94 10x6/uL (4.20-6.10); RDW 15.7 % (11.5-14.5)
[2018-04-21 09:57] LABS: ANION GAP 9.3 mmol/L (8-16); CALCIUM 9.1 mg/dL (8.5-10.1); CARBON DIOXIDE 30.3 mmol/L (21.0-32.0); CREATININE - SERUM 1.1 mg/dL (0.6-1.3); POTASSIUM - SERUM 3.6 mmol/L (3.5-5.1)
== END | disposition home or self-care (01) ==
LOC: D.CATH 06:57
PROVIDERS: Internal Medicine Cardiovascular Disease
DX: I25.119 Atherosclerotic heart disease of native coronary artery with unspecified angina pectoris (principal); E11.9 Type 2 diabetes mellitus without complications